=== PATIENT | female | born 1980 | race Hispanic/Latino ===

== ENCOUNTER 2019-01-16 16:19 | Inpatient (IN) | payer OTHER ==
[2019-01-16 17:46] LABS: BASO # 0.1 K/uL (0.0-0.2); BASO % 0.6 % (0.0-2.0); EOS % 0.2 % (0.0-4.0); HEMOGLOBIN 11.7 g/dL (11.0-16.0); LYMPH # 2.4 K/uL (1.0-4.3); LYMPH % 21.9 % (20.0-40.0); MEAN CELL VOLUME 92.5 fL (81.0-99.0); MEAN CORPUSCULAR HEMOGLOBIN 31.3 pg (27.0-31.0); MEAN CORPUSCULAR HGB CONC 33.8 g/dL (33.0-37.0); MEAN PLATELET VOLUME 7.1 fL (7.2-11.7); MONO # 0.6 K/uL (0.0-0.8); MONO % 5.4 % (0.0-10.0); NEUT # 7.8 K/uL (1.8-7.0); NEUT % 71.9 % (50.0-75.0); RBC 3.74 Mil/uL (3.80-5.20); RED CELL DISTRIBUTION WIDTH 13.2 % (11.5-14.5); WHITE BLOOD COUNT 10.8 K/uL (4.8-10.8)
[2019-01-16 17:47] LABS: HCG,QUALITATIVE URINE NEGATIVE (NEGATIVE)
[2019-01-16 17:50] LABS: URINE BILIRUBIN NEGATIVE (NEGATIVE); URINE BLOOD 1+ (NEGATIVE); URINE CLARITY Clear (Clear); URINE COLOR Colorless (YELLOW); URINE GLUCOSE (UA) NORMAL (Normal); URINE LEUKOCYTE ESTERASE NEG Leu/uL (Negative); URINE PROTEIN NEGATIVE (NEGATIVE); URINE UROBILINOGEN NORMAL mg/dL (0.2-1.0)
[2019-01-16 18:03] LABS: BARBITURATES, UR NEGATIVE (NEGATIVE); BENZODIAZEPINES, UR NEGATIVE (NEGATIVE); OPIATES, UR NEGATIVE (NEGATIVE); PHENCYCLIDINE, UR NEGATIVE (NEGATIVE)
[2019-01-16 18:06] LABS: ALB/GLOB RATIO 1.6 (1.0-2.1); ALBUMIN 4.2 g/dL (3.5-5.0); ALT/SGPT 156 U/L (9-52); AST/SGOT 147 U/L (14-36); BLOOD UREA NITROGEN 4 mg/dL (7-17); CALCIUM 9.1 mg/dl (8.6-10.4); GFR NON-AFRICAN AMERICAN > 60
--- NOTE | 2019-01-16 18:09 | C.PDOC ---
History Of Present Illness 38 year old female presents to ED requesting alcohol detox. Patient states that she drinks 3 bottles of wine a day. She states that her last drink was today. Patient complains of mild tremors. She denies any other drug abuse. Patient has no other physical complaints. Chief Complaint (Nursing): Substance Abuse History Per: Patient History/Exam Limitations: no limitations Current Symptoms Are (Timing): Still Present Suicide/Self Injury Attempted (Context): None Modifying Factor(s): Alcohol Associated Symptoms: Other (mild tremors) Past Medical History Reviewed: Historical Data, Nursing Documentation, Vital Signs Vital Signs: Last Vital Signs Temp 98.9 F 01/16/19 17:03 Pulse 112 H 01/16/19 17:03 Resp 18 01/16/19 17:03 BP 157/84 H 01/16/19 17:03 Pulse Ox 99 01/16/19 17:03 - Medical History PMH: No Chronic Diseases Surgical History: No Surg Hx Family History: States: Unknown Family Hx - Social History Hx Alcohol Use: Yes Hx Substance Use: No - Immunization History Hx Tetanus Toxoid Vaccination: No Hx Influenza Vaccination: No Hx Pneumococcal Vaccination: No Review Of Systems Constitutional: Positive for: Other (mild tremors). Negative for: Fever, Chills, Weakness Cardiovascular: Negative for: Chest Pain, Palpitations Respiratory: Negative for: Shortness of Breath Gastrointestinal: Negative for: Nausea, Vomiting Neurological: Negative for: Weakness, Numbness, Dizziness Physical Exam - Physical Exam Appears: Non-toxic, No Acute Distress Skin: Normal Color, Warm, Dry Head: Atraumatic, Normacephalic Neck: Supple Chest: Symmetrical, No Deformity Cardiovascular: Rhythm Regular, No Murmur Respiratory: Normal Breath Sounds Gastrointestinal/Abdominal: Normal Exam, Soft, No Tenderness Extremity: Normal ROM Neurological/Psych: Oriented x3, Normal Speech, Normal Cognition, Other (mild tremors) ED Course And Treatment - Laboratory Results Result Diagrams: 01/16/19 17:36 01/16/19 17:36 Lab Results: Urine Color Colorless (YELLOW) 01/16/19 17:27 Urine Clarity Clear (Clear) 01/16/19 17:27 Urine pH 7.0 (5.0-8.0) 01/16/19 17:27 Ur Specific [place] 1.000 (1.003-1.030) L 01/16/19 17:27 Urine Protein Negative mg/dL (NEGATIVE) 01/16/19 17:27 Urine Glucose (UA) Normal mg/dL (Normal) 01/16/19 17:27 Urine Ketones Negative mg/dL (NEGATIVE) 01/16/19 17:27 Urine Blood 1+ (NEGATIVE) H 01/16/19 17:27 Urine Nitrate Negative (NEGATIVE) 01/16/19 17:27 Urine Bilirubin Negative (NEGATIVE) 01/16/19 17:27 Urine Urobilinogen Normal mg/dL (0.2-1.0) 01/16/19 17:27 Ur Leukocyte Esterase Neg Heri/uL (Negative) 01/16/19 17:27 Urine WBC (Auto) < 1 /hpf (0-5) 01/16/19 17:27 Urine HCG, Qual Negative (NEGATIVE) 01/16/19 17:27 Urine HCG, Qual Negative (NEGATIVE) 01/16/19 17:27 O2 Sat by Pulse Oximetry: 99 (in RA) Medical Decision Making Medical Decision Making: Impression: 38 year old female presents to ED requesting alcohol detox. Plan: Labs ordered with drug screen and UA Patient given Librium PO Patient medically cleared. Disposition - Disposition Disposition Time: 18:15 Condition: STABLE Forms: [facility] ([place]) - Clinical Impression Clinical Impression: Alcohol dependence - Scribe Statement The provider has reviewed the documentation as recorded by the Scribe (Jaqueline Edwards) All medical record entries made by the Scribe were at my direction and personally dictated by me. I have reviewed the chart and agree that the record accurately reflects my personal performance of the history, physical exam, med [facility] decision making, and the department course for this patient. I have also personally directed, reviewed, and agree with the discharge instructions and disposition.
--- NOTE | 2019-01-16 19:05 | PCM.BM ---
<David Nicole - Last Filed: 01/16/19 19:02> Treatment Plan Problems - Problems identified on initial assessmt knowledge deficit:alcohol use Date Initiated: 01/16/19 Time Initiated: 19:03 Assessment reference: NA Status: Active anxiety related to substance use Date Initiated: 01/16/19 Time Initiated: 19:04 Assessment reference: NA Status: Active denial Date Initiated: 01/16/19 Time Initiated: 19:04 Assessment reference: NA Status: Active Treatment assets and liabiliti Patient Assests: cooperative, self-reliant, cognitively intact Patient Liabilities: substance abuse - Milieu Protocol Maintain good personal hygiene: daily Encourage regular showers, daily Remind patient to perform daily oral care, daily Assist patient to perform ADL's Conduct patient checks and document Observation sheet: Q15 minutes Maintain personal safety: every shift Educate patient to report safety concerns to staff, every shift Monitor environment for contraband/sharps Medication safety: Monitor for expected outcome, potential side effects: every shift, Assess barriers to learning: every shift, Assess readiness for medication education: every shift <Tia Low - Last Filed: 01/18/19 11:26> Family Contact Family involvement: Family/SO is involved Family contact name: SISTER Family contacted how many times per week?: 3 - Goals for Treatment Patient goals for treatment: COMPLETE DETOX AND APPLY FOR SHORT-TERM REHAB--POSSIBLY IN HER COUNTRY OF [place]IG[place]. Discharge/Continuing Care - Education Needs Education Needs: Family Diagnosis/Disease Process, Family Placement options, Patient Medication, Patient Diagnosis/Disease Process, Patient Coping Skills, Patient Anger Management skills, Patient Placement options, Patient Community resources - Discharge Discharge Criteria: Ability to care for self, No longer exhibiting s/s of withdrawal, Reduction of target symptoms Discharge to:: Substance Abuse Rehab - Treatment Team Participation Patient/Family/SO Statement: 01/18/19 11:26 "I MAY GO BACK TO [facility] FOR [facility]P..." Discussed with Family/SO: No Was Patient/Family/SO present at Treatment Team Meeting: Yes
[2019-01-16] MEDS ORDERED: Aluminum Hydroxide/Magnesium Hydroxide Susp (30 mL) PO PRN (20:42)
[2019-01-17] MEDS: Multiple Vitamins Tab PO SCH (09:22)
--- NOTE | 2019-01-17 10:31 | PCM.PSYCH ---
Initial Psychiatric Evaluation - Initial Psychiatric Evaluation Type of Admission: Voluntary Legal Status: Capacity Chief Complaint (in patient's own words): "Alcohol" History of Present Illness and Precipitating Events: Pt is seen, chart reviewed and case discussed. 38 y/o Hebrew-B[place]i female with one daughter. 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 States that she currently drinks 3 bottles of wine per day. States that she has been drinking for the past 22 years, and that drinking became a problem in her 30's. Pt has been admitted once to detox last year, but states that she has never been to rehab. Pt also attends AA meetings periodically. When she does not drink, pt feels very sick. Denies No seizures.. Denies SI, HI, and psychosis, jing. She has excessive worrying and anxiety She misses work a lot bc of alcohol and her relationship is also affected Psych HX: Denies Fam Psych Hx: Alcohol use disorder- Father Medical Hx: Denies Social: Daily alcohol use Trauma : Denies Current Medications: Active Medications Generic Name Dose Route Start Last Admin Trade Name Freq PRN Reason Stop Dose Admin Al Hydrox/Mg Hydrox/Simethicone 30 ml 01/16/19 20:42 Maalox 30 Ml PO TID PRN Indigestion / Heartburn Clonidine HCl 0.1 mg 01/16/19 20:40 01/16/19 21:22 Catapres PO 0.1 mg Q4H PRN Administration Symptoms of alcohol withdrawl Dicyclomine HCl 10 mg 01/16/19 20:42 Bentyl PO Q6 PRN Muscle spasm Folic Acid 1 mg 01/17/19 10:00 01/17/19 09:22 Folic Acid PO 1 mg DAILY JOCELYNE Administration Gabapentin 300 mg 01/17/19 10:00 01/17/19 09:22 Neurontin PO 300 mg TID JOCELYNE Administration Hydroxyzine HCl 25 mg 01/16/19 20:22 01/16/19 20:26 Atarax PO 25 mg Q6 PRN Administration Anxiety Loperamide HCl 2 mg 01/16/19 20:42 Imodium PO Q8 PRN Diarrhea Lorazepam 1 mg 01/16/19 21:30 01/17/19 08:50 Ativan PO 01/21/19 21:29 1 mg Q4 JOCELYNE Administration Taper Magnesium Hydroxide 30 ml 01/16/19 20:39 Milk Of Magnesia PO 01/19/19 10:01 BID PRN Constipation Multivitamins 1 tab 01/17/19 10:00 01/17/19 09:22 Hexavitamin PO 1 tab DAILY JOCELYNE Administration Ondansetron HCl 4 mg 01/16/19 20:39 Zofran Tab PO Q8 PRN Nausea/Vomiting Thiamine HCl 100 mg 01/17/19 10:00 01/17/19 09:22 Vitamin B1 Tab PO 100 mg DAILY JOCELYNE Administration Trazodone HCl 50 mg 01/16/19 22:00 01/16/19 21:22 Desyrel PO 50 mg HS PRN Administration Insomnia Past Psychiatric History - Past Psychiatric History Pertinent Medical Hx (Current Medical&Sleep Prob, Allergies): Allergies Allergy/AdvReac Type Severity Reaction Status Date / Time No Known Allergies Allergy Verified 01/16/19 17:09 No Known Home Med 01/16/19 Review of Systems - Psychiatric Psychiatric: Abnormal Sleep Pattern, Anhedonia, Anxiety, Difficulty Concentrating. absent: Homicidal Ideation, Panic Attacks, Paranoia, Suicidal Ideation Mental Status Examination - Personal Presentation Personal Presentation: Looks stated age - Affect Affect: Constricted - Motor Activity Motor Activity: Calm - Reliability in Providing Information Reliability in Providing Information: Good - Speech Speech: Organized - Mood Mood: Anxious - Formal Thought Process Formal Thought Process: No Impairment - Cognitive Functions Orientation: Person, Place, Situation, Time Sensorium: Alert Attention/Concentration: Attentive Estimate of Intelligence: Average Judgement: Intact, as evidence by: Insight regarding need for hospitalization Memory: Recent intact, as evidence by: Ability to recall events of the day, Remote intact, as evidenced by: Abilit to recall sig. life events - Risk Risk: Withdrawal, Diminished functioning - Strength & Assets Inventory Strength & Assets Inventory: Cooperative - Limitations Limitations: Other DSM 5 DX - DSM 5 DSM 5 Diagnosis: Alcohol Withdrawal Alcohol use d/o - severe BLAIR - Recommended/Plan of Treatment Treatment Recommendations and Plan of Treatment: Taper withativan (LFTs are high) Gabapentin for augmentation if needed As needed medications All risks, benefits and alternatives of the meds discussed, and the pt agreed and understood. Attend groups and activities Supportive therapy and psychoeducation [place] for abstinence CBT for relapse prevention Encourage MAT Refer to rehab or IOP, and self-help groups Teach healthy lifestyle methods, i.e. diet, exercise, meditation Smoking cessation with [place] Nicotine patch if needed 34 min
[2019-01-17] MEDS: Magnesium Oxide 400 mg Tab UD PO SCH ×2 (11:04→17:31)
[2019-01-17] MEDS: Magnesium Hydroxide Susp 30 ml UD PO PRN (19:11)
[2019-01-18] MEDS: Multiple Vitamins Tab PO SCH (09:33)
[2019-01-18] MEDS: Magnesium Oxide 400 mg Tab UD PO SCH ×2 (09:33→17:37)
[2019-01-18] MEDS: Magnesium Hydroxide Susp 30 ml UD PO PRN (10:27)
--- NOTE | 2019-01-18 14:54 | PCM.PYCHPN ---
Psychiatric Progress Note - Psychiatric Progress Note Patient seen today, length of contact: 16 min Patient Chief Complaint: "I'm withdrawing" Problems Identified/Issues Discussed: The pt is seen, chart reviewed, case is discussed with staff. The pt is compliant with medications and reports no side-effects. Symptoms are improving but needs more time to stabilize and to avoid relapse. Pt attends groups and activities. Support given, psycho-education provided. After care discussed. Medication Change: Yes (detox changes daily) Medical Record Reviewed: Yes Mental Status Examination - Cognitive Function Orientation: Person, Place, Situation, Time Memory: Intact Attention: WNL Concentration: Poor Association: WNL Fund of Knowledge: WNL - Mood Mood: Anxious - Affect Affect: Constricted - Speech Speech: Appropriate - Formal Thought Process Formal Thought Process: No Impairment - Suicidal Ideation Suicidal Ideation: No - Homicidal Ideation Homicidal Ideation: No Goal/Treatment Plan - Goal/Treatment Plan Need for Continued Stay: Discharge may exacerbated symptoms, Severe functional impairment Progress Toward Problem(s) and Goals/Treatment Plan: Taper withativan (LFTs are high) Gabapentin for augmentation if needed As needed medications All risks, benefits and alternatives of the meds discussed, and the pt agreed and understood. Attend groups and activities Supportive therapy and psychoeducation [place] for abstinence CBT for relapse prevention Encourage MAT Refer to rehab or IOP, and self-help groups Teach healthy lifestyle methods, i.e. diet, exercise, meditation Smoking cessation with [place] Nicotine patch if needed
[2019-01-19] MEDS: Magnesium Oxide 400 mg Tab UD PO SCH ×2 (09:41→17:03)
[2019-01-19] MEDS: Multiple Vitamins Tab PO SCH (09:41)
--- NOTE | 2019-01-19 12:21 | PCM.PYCHPN ---
Psychiatric Progress Note - Psychiatric Progress Note Patient seen today, length of contact: 15 min Patient Chief Complaint: "I'm withdrawing" Problems Identified/Issues Discussed: The pt is seen, chart reviewed, case is discussed with staff. The pt is compliant with medications and reports no side-effects. Symptoms are improving but needs more time to stabilize and to avoid relapse. Pt attends groups and activities. Support given, psycho-education provided. After care discussed. Medication Change: Yes (detox changes daily) Medical Record Reviewed: Yes Mental Status Examination - Cognitive Function Orientation: Person, Place, Situation, Time Memory: Intact Attention: WNL Concentration: Poor Association: WNL Fund of Knowledge: WNL - Mood Mood: Anxious - Affect Affect: Constricted - Speech Speech: Appropriate - Formal Thought Process Formal Thought Process: No Impairment - Suicidal Ideation Suicidal Ideation: No - Homicidal Ideation Homicidal Ideation: No Goal/Treatment Plan - Goal/Treatment Plan Need for Continued Stay: Discharge may exacerbated symptoms, Severe functional impairment Progress Toward Problem(s) and Goals/Treatment Plan: Taper withativan (LFTs are high) Gabapentin for augmentation if needed As needed medications All risks, benefits and alternatives of the meds discussed, and the pt agreed and understood. Attend groups and activities Supportive therapy and psychoeducation [place] for abstinence CBT for relapse prevention Encourage MAT Refer to rehab or IOP, and self-help groups Teach healthy lifestyle methods, i.e. diet, exercise, meditation Smoking cessation with [place] Nicotine patch if needed
[2019-01-19] MEDS ORDERED: Magnesium Hydroxide Susp 30 ml UD PO ONE (18:34)
[2019-01-20] MEDS: Magnesium Oxide 400 mg Tab UD PO SCH ×2 (09:11→17:27)
[2019-01-20] MEDS: Multiple Vitamins Tab PO SCH (09:11)
--- NOTE | 2019-01-20 13:06 | PCM.PYCHPN ---
Psychiatric Progress Note - Psychiatric Progress Note Patient seen today, length of contact: 15 min Patient Chief Complaint: "I'm withdrawing" Problems Identified/Issues Discussed: The pt is seen, chart reviewed, case is discussed with staff. The pt is compliant with medications and reports no side-effects. Symptoms are improving but needs more time to stabilize and to avoid relapse. Pt attends groups and activities. Support given, psycho-education provided. After care discussed. Medication Change: Yes (detox changes daily) Medical Record Reviewed: Yes Mental Status Examination - Cognitive Function Orientation: Person, Place, Situation, Time Memory: Intact Attention: WNL Concentration: Poor Association: WNL Fund of Knowledge: WNL - Mood Mood: Anxious - Affect Affect: Constricted - Speech Speech: Appropriate - Formal Thought Process Formal Thought Process: No Impairment - Suicidal Ideation Suicidal Ideation: No - Homicidal Ideation Homicidal Ideation: No Goal/Treatment Plan - Goal/Treatment Plan Need for Continued Stay: Discharge may exacerbated symptoms, Severe functional impairment Progress Toward Problem(s) and Goals/Treatment Plan: Taper withativan (LFTs are high) Gabapentin for augmentation if needed As needed medications All risks, benefits and alternatives of the meds discussed, and the pt agreed and understood. Attend groups and activities Supportive therapy and psychoeducation [place] for abstinence CBT for relapse prevention Encourage MAT Refer to rehab or IOP, and self-help groups Teach healthy lifestyle methods, i.e. diet, exercise, meditation Smoking cessation with [place] Nicotine patch if needed
[2019-01-21 05:32] VITALS: RESP 18; O2SAT 99
[2019-01-21] MEDS: Magnesium Oxide 400 mg Tab UD PO SCH (09:05)
[2019-01-21] MEDS: Multiple Vitamins Tab PO SCH (09:05)
[2019-01-21 10:40] VITALS: BP 124/74; PULSE 112; TEMP 97.8
--- NOTE | 2019-01-21 10:55 | PCM.PYCHDC ---
Mental Status Examination - Mental Status Examination Orientation: Person, Place, Situation, Time Memory: Intact Mood: Neutral Affect: Constricted Speech: Soft Attention: WNL Concentration: WNL Association: WNL Fund of Knowledge: WNL Formal Thought Process: No Impairment Description of patient's judgement and insight: good, fair Psychotic Thoughts and Behaviors: denies any AVH Suicidal Ideation: No Current Homicidal Ideation?: No Discharge Summary - Discharge Note Reason for Hospitalization: Pt is seen, chart reviewed and case discussed. 38 y/o [place]ese-[place] female with one daughter. 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 States that she currently drinks 3 bottles of wine per day. States that she has been drinking for the past 22 years, and that drinking became a problem in her 30's. Pt has been admitted once to detox last year, but states that she has never been to rehab. Pt also attends AA meetings periodically. When she does not drink, pt feels very sick. Denies No seizures.. Denies SI, HI, and psychosis, jing. She has excessive worrying and anxiety She misses work a lot bc of alcohol and her relationship is also affected Consultations:: List each consultation separately and include: 1. Reason for request. 2. Findings. 3. Follow-up Summary of Hospital Course include:: 1. Description of specific treatment plan utilized for patients during their course of treatmen. 2. Summarize the time- course for resolution of acute symptoms and/or regressed behaviors. 3. Describe issues identified and worked on during hospitalization. 4. Describe medication utilized. 5. Describe medical problems identified and treated. 6. Reassessment of suicide risk - Final Diagnosis (DSM 5) Condition upon Discharge: STABLE DSM 5: Alcohol Withdrawal Alcohol use d/o - severe BLAIR Disposition: HOME/ ROUTINE Prescriptions/Medication Reconciliation: Gabapentin [Neurontin] 300 mg PO BID #60 cap traZODone [Desyrel] 50 mg PO HS PRN #30 tab PRN Reason: Insomnia
== END 2019-01-21 14:00 | disposition home or self-care (01) | DRG 751 ==
LOC: C.ER 16:19 → C.7D 18:49
PROVIDERS: ADMIT Psychiatry & Neurology Psychiatry; ATTEND Psychiatry & Neurology Psychiatry
DX: F10.239 Alcohol dependence with withdrawal, unspecified (principal); F41.9 Anxiety disorder, unspecified; G47.00 Insomnia, unspecified